=== PATIENT | female | born 1980 | race Caucasian/White ===

== ENCOUNTER 2016-08-16 07:48 | Emergency (ER) | payer OTHER, MEDICAID ==
[2016-08-16 07:53] VITALS: BMI 28.7
[2016-08-16 07:58] VITALS: TEMP 98.8
[2016-08-16] MEDS ORDERED: Naproxen 550 mg Tab PO ONE (08:30)
--- NOTE | 2016-08-16 08:30 | ED PDOC ---
Arrival/HPI <Jeramy Sim P - Last Filed: 08/16/16 09:17> - General Historian: Patient - History of Present Illness Time/Duration: 24 hours Symptom Onset: Sudden Symptom Course: Worsening Severity Level: 7 <Gopal Hillman - Last Filed: 08/16/16 09:28> - General Chief Complaint: Upper Extremity Problem/Injury Time Seen by Provider: 08/16/16 08:01 - History of Present Illness Narrative History of Present Illness (Text): 08/16/16 08:28 36 year old female with past medical history of osteoporosis presents to [facility] with a complain left hand pain and swelling. Patient reports she slipped and fell last night at work on the wet floor. She fell to her left side and landed on her outstretched left hand. Patient used topical numbing cream at home which did not help with her pain. She woke up this morning noticed her wrist is swollen and the pain has gotten worse. She describes the pain as 7 out of 10, sharp in quality, non-radiating, worsens with movement. She denies having numbness, tingling, loss of sensation, or injury to other area of her body. (Gopal Hillman) Past Medical History - Provider Review Nursing Documentation Reviewed: Yes - Cardiac Hx Cardiac Disorders: No - Pulmonary Hx Respiratory Disorders: No - Neurological Hx Neurological Disorder: No - HEENT Hx HEENT Disorder: No - Renal Hx Renal Disorder: No - Hematological/Oncological Hx Blood Disorders: No - Integumentary Hx Dermatological Disorder: No - Musculoskeletal/Rheumatological Hx Musculoskeletal Disorders: Yes Hx Osteoporosis: Yes - Gastrointestinal Hx Gastrointestinal Disorders: No - Genitourinary/Gynecological Hx Genitourinary Disorders: No - Psychiatric Hx Psychophysiologic Disorder: No Hx Depression: No Hx Emotional Abuse: No Hx Physical Abuse: No Hx Substance Use: No - Surgical History Hx Eye Surgery: Yes - Suicidal Assessment Feels Threatened In Home Enviroment: No <Gopal Hillman - Last Filed: 08/16/16 09:28> Family/Social History - Physician Review Nursing Documentation Reviewed: Yes Family/Social History: No Known Family HX Smoking Status: Never Smoked Hx Alcohol Use: No Hx Substance Use: No <Gopal Hillman - Last Filed: 08/16/16 09:28> Allergies/Home Meds <Jeramy Sim - Last Filed: 08/16/16 09:17> <Gopal Hillman - Last Filed: 08/16/16 09:28> Allergies/Adverse Reactions: Allergies No Known Allergies Allergy (Verified 08/16/16 07:53) Home Medications: Home Meds Medication Instructions Recorded Confirmed Alendronate Sodium [Alendronate .WEEKLY 08/16/16 (Fosamax)] Calcium Carbonate [Calcium] DAILY 08/16/16 Ergocalciferol (Vitamin D2) .WEEKLY 08/16/16 [Vitamin D] Review of Systems - Physician Review All systems were reviewed & negative as marked: Yes - Review of Systems Constitutional: Normal. absent: Fatigue, Fevers Eyes: Normal. absent: Vision Changes Respiratory: Normal. absent: SOB, Cough Gastrointestinal: Normal. absent: Abdominal Pain, Constipation, Diarrhea, Nausea, Vomiting Musculoskeletal: Joint Swelling (left wrist swelling) Skin: Normal. absent: Rash Psychiatric: Normal. absent: Anxiety, Depression <Gopal Hillman - Last Filed: 08/16/16 09:28> Physical Exam Vital Signs Reviewed: Yes Temperature: Afebrile Blood Pressure: Normal Pulse: Regular Respiratory Rate: Normal Appearance: Positive for: Well-Appearing Mental Status: Positive for: Alert and Oriented X 3 - Systems Exam Head: Present: Atraumatic, Normocephalic Extroacular Muscles: Present: EOMI Conjunctiva: Present: Normal Mouth: Present: Moist Mucous Membranes Respiratory/Chest: Present: Clear to Auscultation, Good Air Exchange. No: Respiratory Distress, Accessory Muscle Use Abdomen: Present: Normal Bowel Sounds. No: Tenderness, Distention, Peritoneal Signs Upper Extremity: Present: NORMAL PULSES, Swelling (left lateral wrist swelling with slight erythema), Erythema, Norm 2-Pt Discrimination. No: Deformity Lower Extremity: Present: Normal Inspection. No: Edema Neurological: Present: GCS=15, CN II-XII Intact, Speech Normal Skin: Present: Warm, Dry. No: Rashes Psychiatric: Present: Alert, Oriented x 3, Normal Insight, Normal Concentration <Gopal Hillman - Last Filed: 08/16/16 09:28> Vital Signs Temp Pulse Resp BP Pulse Ox 08/16/16 08:58 61 18 112/64 100 08/16/16 07:54 98.8 F 65 16 107/64 99 Medical Decision Making <Jeramy Sim - Last Filed: 08/16/16 09:17> Re-evaluation Time: 09:24 Reassessment Condition: Improving,but remains with symptoms - RAD Interpretation Child Adolescent Psychiatrist: ED Physician <Gopal Hillman - Last Filed: 08/16/16 09:28> ED Course and Treatment: 08/16/16 09:18 thumb spica splint applied (Jeramy Sim) 08/16/16 08:43 -Left wrist x-ray -Naproxen -Reassessment (Gopal Hillman) - RAD Interpretation Narrative RAD Interpretations (Text): 08/16/16 09:23 No acute fractures of left wrist appreciated, read by me (Gopal Hillman) Radiology Orders: 08/16/16 08:25 WRIST, LEFT 3 VIEWS [RAD] Stat - Medication Orders Current Medication Orders: Discontinued Medications Naproxen (Anaprox Ds) 550 mg PO ONCE ONE Stop: 08/16/16 08:31 Last Admin: 08/16/16 08:57 Dose: 550 MG Naproxen (Anaprox Ds) 550 mg PO STAT STA Stop: 08/16/16 09:05 - PA / CPC / Resident Statement MD/ has reviewed & agrees with the documentation as recorded. <Gopal Hillman - Last Filed: 08/16/16 09:28> Disposition/Present on Arrival - Present on Arrival Any Indicators Present on Arrival: No - Disposition Have Diagnosis and Disposition been Completed?: Yes Disposition Time: 09:17 <Jeramy Sim - Last Filed: 08/16/16 09:17> - Present on Arrival Any Indicators Present on Arrival: No History of DVT/PE: No History of Uncontrolled Diabetes: No Urinary Catheter: No History of Decub. Ulcer: No History Surgical Site Infection Following: None <Gopal Hillman - Last Filed: 08/16/16 09:28> - Disposition Diagnosis: Wrist contusion Disposition: HOME/ ROUTINE Patient Problems: Current Active Problems Problem Status Diagnosed Wrist contusion Acute Condition: GOOD Discharge Instructions (ExitCare): Splint Care (ED) Additional Instructions: Please follow up with the transition of care specialist this week. Use ibuprofen and ice for pain relief. Return to the ER for any worsening symptoms or for any other concerns. Referrals: Rocky Robbins III, MD [Medical Doctor] - Follow up with primary Mary Jaquez MD [Primary Care Provider] - Follow up with primary Forms: WORK NOTE
[2016-08-16 09:02] VITALS: BP 112/64; RESP 18; O2SAT 100
[2016-08-16] MEDS ORDERED: Naproxen 550 mg Tab PO STA (09:04)
--- NOTE | 2016-08-16 09:27 | RAD ---
PROCEDURE: Left Wrist Radiographs. HISTORY: foosh pain COMPARISON: None. FINDINGS: BONES: Normal. No fracture. JOINTS: Normal. No dislocation. SOFT TISSUES: Normal. OTHER FINDINGS: None. IMPRESSION: Normal left wrist radiographs.
[2016-08-16 09:48] VITALS: PULSE 67
== END 2016-08-16 09:47 | disposition home or self-care (01) ==
LOC: ED 07:48
DX: S60.212A Contusion of left wrist, initial encounter (principal); W01.0XXA Fall on same level from slipping, tripping and stumbling without subsequent striking against object, initial encounter; Y92.69 Other specified industrial and construction area as the place of occurrence of the external cause; Y99.0 Civilian activity done for income or pay

== ENCOUNTER 2016-10-28 15:53 | Emergency (ER) | payer MEDICAID, OTHER ==
[2016-10-28 15:53] VITALS: BMI 28.7
[2016-10-28 16:07] VITALS: BP 109/69; PULSE 78; RESP 16; TEMP 98.7; O2SAT 98
--- NOTE | 2016-10-28 16:24 | ED PDOC ---
Arrival/HPI - General Chief Complaint: Lower Extremity Problem/Injury Time Seen by Provider: 10/28/16 16:11 Historian: Patient - History of Present Illness Narrative History of Present Illness (Text): 10/28/16 16:21 36yo female in ED for 3days history of left dorsal foot pain. Pain is with weight bearing and ambulation. States pain started suddenly without trauma. Denies redness, any other complaint. Did not take any analgesic for the pain. Past Medical History - Cardiac Hx Cardiac Disorders: No - Pulmonary Hx Respiratory Disorders: No - Neurological Hx Neurological Disorder: No - HEENT Hx HEENT Disorder: No - Renal Hx Renal Disorder: No - Endocrine/Metabolic Hx Endocrine Disorders: No - Hematological/Oncological Hx Blood Disorders: No - Integumentary Hx Dermatological Disorder: No - Musculoskeletal/Rheumatological Hx Musculoskeletal Disorders: Yes Hx Osteoporosis: Yes - Gastrointestinal Hx Gastrointestinal Disorders: No - Genitourinary/Gynecological Hx Genitourinary Disorders: No - Psychiatric Hx Psychophysiologic Disorder: No Hx Depression: No Hx Emotional Abuse: No Hx Physical Abuse: No Hx Substance Use: No - Surgical History Hx Eye Surgery: Yes - Suicidal Assessment Feels Threatened In Home Enviroment: No Family/Social History - Physician Review Nursing Documentation Reviewed: Yes Family/Social History: Unknown Family HX Smoking Status: Never Smoked Hx Alcohol Use: No Hx Substance Use: No Allergies/Home Meds Allergies/Adverse Reactions: Allergies No Known Allergies Allergy (Verified 10/28/16 16:02) Home Medications: Home Meds Medication Instructions Recorded Confirmed Alendronate Sodium [Alendronate 25 mg PO MON 08/16/16 10/28/16 (Fosamax)] Calcium Carbonate [Calcium] 1 tab PO DAILY 08/16/16 10/28/16 Ergocalciferol (Vitamin D2) 50,000 unit PO SAT 08/16/16 10/28/16 [Vitamin D] Review of Systems - Physician Review All systems were reviewed & negative as marked: Yes - Review of Systems Constitutional: Normal Eyes: Normal ENT: Normal Respiratory: Normal Cardiovascular: Normal Gastrointestinal: Normal Genitourinary Female: Normal Musculoskeletal: Arthralgias (LEft foot) Skin: Normal Neurological: Normal Endocrine: Normal Hemo/Lymphatic: Normal Psychiatric: Normal Physical Exam Vital Signs Reviewed: Yes Vital Signs Temp Pulse Resp BP Pulse Ox 10/28/16 16:03 98.7 F 78 16 109/69 98 Temperature: Afebrile Blood Pressure: Normal Pulse: Regular Respiratory Rate: Normal Appearance: Positive for: Well-Appearing, Non-Toxic, Comfortable Pain Distress: None Mental Status: Positive for: Alert and Oriented X 3 - Systems Exam Head: Present: Atraumatic, Normocephalic Pupils: Present: PERRL Extroacular Muscles: Present: EOMI Conjunctiva: Present: Normal Mouth: Present: Moist Mucous Membranes Neck: Present: Normal Range of Motion Respiratory/Chest: Present: Clear to Auscultation, Good Air Exchange. No: Respiratory Distress, Accessory Muscle Use Cardiovascular: Present: Regular Rate and Rhythm, Normal S1, S2. No: Murmurs Abdomen: Present: Normal Bowel Sounds. No: Tenderness, Distention, Peritoneal Signs Back: Present: Normal Inspection Upper Extremity: Present: Normal Inspection. No: Cyanosis, Edema Lower Extremity: Present: NORMAL PULSES, Normal ROM, Tenderness (LEft proximal left dorsal foot), Neurovascularly Intact, Capillary Refill < 2 s. No: Edema, Cyanosis, Swelling, Erythema, Deformity, Temperature Abnormalties Neurological: Present: GCS=15, CN II-XII Intact, Speech Normal Skin: Present: Warm, Dry, Normal Color. No: Rashes Psychiatric: Present: Alert, Oriented x 3, Normal Insight, Normal Concentration Medical Decision Making ED Course and Treatment: 10/28/16 17:20 Left foot xray - Calcneal spur noted. No acute finding Result was DW the pt. she was referred to a [facility]. Ibuprofen given for pain. - RAD Interpretation Radiology Orders: 10/28/16 16:11 FOOT LEFT 3 VIEWS ROUTINE [RAD] Stat - Medication Orders Current Medication Orders: Discontinued Medications Ibuprofen (Motrin Tab) 600 mg PO STAT STA Stop: 10/28/16 17:02 Disposition/Present on Arrival - Present on Arrival Any Indicators Present on Arrival: No History of DVT/PE: No History of Uncontrolled Diabetes: No Urinary Catheter: No History of Decub. Ulcer: No History Surgical Site Infection Following: None - Disposition Have Diagnosis and Disposition been Completed?: Yes Diagnosis: Foot pain Disposition: HOME/ ROUTINE Disposition Time: 07:00 Patient Plan: Discharge Patient Problems: Current Active Problems Problem Status Onset Foot pain Acute Condition: STABLE Discharge Instructions (ExitCare): Arthralgia (ED) Additional Instructions: Follow up with a [facility] Return to ED for any new or worsening symptoms Prescriptions: Ibuprofen [Motrin Tab] 600 mg PO Q6 #20 tab Referrals: Mary Jaquez MD [Primary Care Provider] - Follow up with primary Brian Coon DPM [Staff Provider] - Follow up with primary
--- NOTE | 2016-10-28 17:19 | RAD ---
PROCEDURE: Left Foot Radiographs. HISTORY: foot pain COMPARISON: 08/02/2012 FINDINGS: BONES: No fracture. Small plantar calcaneal spur. JOINTS: Normal. SOFT TISSUES: Normal. OTHER FINDINGS: None. IMPRESSION: Plantar calcaneal spur. Otherwise unremarkable.
== END 2016-10-28 17:02 | disposition home or self-care (01) ==
LOC: ED 15:53
DX: M79.672 Pain in left foot (principal)